=== PATIENT | male | born 1970 | race Caucasian/White ===

== ENCOUNTER 2024-11-20 17:13 | Emergency (ER) | payer OTHER ==
[~2024-11-20] VITALS: Ht 180.3 cm; Wt 123.0 kg
[2024-11-20] MEDS ORDERED: ALLOPURINOL100 MG PO (18:55)
[2024-11-20] MEDS ORDERED: NORVASC5 MG PO (18:55)
[2024-11-20] MEDS ORDERED: SEROQUEL50 MG PO (18:56)
[2024-11-20] MEDS ORDERED: LISINOPRIL20 MG PO (18:56)
[2024-11-20] MEDS ORDERED: KETOROLAC TROMETHAMINE 60 MG/2 ML VIAL IM ONE (19:45)
[2024-11-20] MEDS ORDERED: diazePAM 10 MG/2 ML SYR IM ONE (19:45)
[2024-11-20] MEDS ORDERED: CYCLOBENZAPRINE10 MG PO (20:39)
[2024-11-20] MEDS ORDERED: methylPREDNISolone 4 MG HOME.PACK PO ONE (20:45)
[2024-11-20] MEDS ORDERED: CYCLOBENZAPRINE HCL 10 MG HOME.PACK PO ONE (20:45)
[2024-11-20 20:55] VITALS: BP 144/82
== END 2024-11-20 20:55 | disposition home or self-care (01) ==
LOC: ED 17:13
DX: S39.012A Strain of muscle, fascia and tendon of lower back, initial encounter (principal); M51.369 Other intervertebral disc degeneration, lumbar region without mention of lumbar back pain or lower extremity pain; X50.0XXA Overexertion from strenuous movement or load, initial encounter; Z88.5 Allergy status to narcotic agent; Z79.899 Other long term (current) drug therapy
CPT/HCPCS: 72100; 96372; 99283; J1885